=== PATIENT | male | born 1950 | race Caucasian/White ===

== ENCOUNTER 2016-10-05 21:35 | Inpatient (IN) | payer MEDICAID, MEDICARE ==
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
[2016-10-05 22:47] LABS: ACETAMINOPHEN < 10.0 ug/mL (10.0-30.0); ALB/GLOB RATIO 1.3 (1.0-1.8); ALKALINE PHOSPHATASE 106 U/L (34-104); ANION GAP 12.6 (7.0-16.0); BILIRUBIN,TOTAL 0.3 mg/dL (0.3-1.0); BUN - UREA NITROGEN 20 mg/dL (7-25); CALCIUM SERUM 9.9 mg/dL (8.6-10.3); CARBON DIOXIDE 21.6 mEq/L (21.0-31.0); CHLORIDE 103 mEq/L (98-107); CHOLESTEROL 202 mg/dL (<200); CREATININE - SERUM 0.8 mg/dL (0.7-1.3); GLUCOSE 109 mg/dL (70-105); POTASSIUM SERUM 4.2 mEq/L (3.5-5.1); SGOT 15 U/L (13-39); SGPT/ALT 8 U/L (7-52); SODIUM SERUM 133 mEq/L (136-145); TRIGLYCERIDES 80 mg/dL (<150)
[2016-10-05 22:59] LABS: % BASOPHILS 0.9 % (0.0-2.0); % EOSINOPHILS 2.1 % (0.0-5.0); % LYMPHOCYTES 36.6 % (20.0-50.0); % NEUTROPHILS 51.4 % (40.0-80.0); HEMATOCRIT 38.6 % (39.0-49.0); HEMOGLOBIN 13.2 gm/dL (12.6-17.4); MEAN CELL VOLUME 86.6 fl (80-99); MEAN CORPUSCULAR HEMOGLOBIN 29.5 pg (27.0-31.0); MEAN CORPUSCULAR HGB CONC 34.1 pg (28.0-36.0); MEAN PLATELET VOLUME 6.9 fl; NEUTROPHILE ABSOLUTE 2.8 Th/cmm (1.8-8.0); PLATELET COUNT 253 Th/cmm (150-400); RED BLOOD COUNT 4.46 Mil/cmm (3.80-5.80); RED CELL DISTRIBUTION WIDTH 14.5 % (11.5-20.0); WHITE BLOOD COUNT 5.4 Th/cmm (4.8-10.8)
[2016-10-06] MEDS ORDERED: guaiFENesin 200 MG/10 ML UDC PO PRN ×2 (00:27→00:28)
[2016-10-06] MEDS ORDERED: Hydrocodone/APAP 5mg/325mg Tab PO PRN (00:27)
[2016-10-06 00:28] LABS: URINE BILIRUBIN NEGATIVE (NEGATIVE); URINE BLOOD NEGATIVE (NEGATIVE); URINE GLUCOSE (UA) NEGATIVE (NEGATIVE); URINE KETONE NEGATIVE (NEGATIVE); URINE PROTEIN NEGATIVE (NEGATIVE); URINE UROBILINOGEN 0.2 E.U./dL (0.2 - 1.0)
[2016-10-06] MEDS ORDERED: Albuterol Nebulizer 2.5mg/3mL HHN PRN (00:28)
[2016-10-06] MEDS ORDERED: Ipratropium Neb 0.5 mg/2.5 mL UD IH PRN (00:28)
[2016-10-06 00:33] LABS: URINE COLOR YELLOW
[2016-10-06 00:34] LABS: URINE BACTERIA NONE SEEN /hpf (NONE SEEN); URINE EPITHELIAL CELLS NONE SEEN /lpf (FEW); URINE RBC NONE SEEN /hpf (0-5); URINE WBC NONE SEEN /hpf (0-5)
[2016-10-06] MEDS: D5-0.9%NS 1,000 ML IV SCH (00:40)
[2016-10-06 00:52] LABS: AMPHETAMINE URINE NEGATIVE (NEGATIVE); BARBITURATES URINE NEGATIVE (NEGATIVE); METHADONE URINE NEGATIVE (NEGATIVE)
[2016-10-06] MEDS ORDERED: Pneumococcal Vaccine 0.5 mL Vial IM ONE (04:08)
[2016-10-06 05:40] VITALS: BP 169/59
--- NOTE | 2016-10-06 08:05 | Diagnostic Imaging Report ---
CT scan of the brain without intravenous contrast HISTORY: Headache, trauma Total DLP equals 615 CTDI equals 33.3 Axial sections were obtained from the base of the skull to the vertex. There is a prominent ventricular system size along with prominence of cerebral sulci and subarachnoid cisterns reflecting atrophy. Basal ganglia calcification noted. Mild hyperdensity noted in the supratentorial white matter regions without mass effect. The findings may be associated with chronic small vessel ischemic disease. No acute abnormalities. No acute intracerebral hemorrhage. No mass effect or shift of midline structures. No extra-axial masses or abnormal fluid collections. Mucosal thickening noted within the maxillary and ethmoid sinuses. IMPRESSION: 1. No acute abnormalities 2. Cerebral atrophy 3. Supratentorial white matter changes. The findings may be seen with chronic small vessel ischemic disease 4. Mucosal thickening within the maxillary and ethmoid sinuses.
[2016-10-06] MEDS: VERAPAMIL HCL 180 MG PO SCH (09:02)
--- NOTE | 2016-10-06 15:25 | Internal Medicine Prog Note ---
Internal Medicine Subjective - Subjective Service Date: 10/06/16 ([id number]) Internal Medicine Objective - Results Result Diagrams: 10/05/16 22:12 10/05/16 22:12 Recent Labs: Laboratory Last Values WBC 5.4 Th/cmm (4.8-10.8) 10/05/16 22:12 RBC 4.46 Mil/cmm (3.80-5.80) 10/05/16 22:12 Hgb 13.2 gm/dL (12.6-17.4) 10/05/16 22:12 Hct 38.6 % (39.0-49.0) L 10/05/16 22:12 MCV 86.6 fl (80-99) 10/05/16 22:12 MCH 29.5 pg (27.0-31.0) 10/05/16 22:12 MCHC Differential 34.1 pg (28.0-36.0) 10/05/16 22:12 RDW 14.5 % (11.5-20.0) 10/05/16 22:12 Plt Count 253 Th/cmm (150-400) 10/05/16 22:12 MPV 6.9 fl 10/05/16 22:12 Neutrophils % 51.4 % (40.0-80.0) 10/05/16 22:12 Lymphocytes % 36.6 % (20.0-50.0) 10/05/16 22:12 Monocytes % 9.0 % (2.0-10.0) 10/05/16 22:12 Eosinophils % 2.1 % (0.0-5.0) 10/05/16 22:12 Basophils % 0.9 % (0.0-2.0) 10/05/16 22:12 Sodium 133 mEq/L (136-145) L 10/05/16 22:12 Potassium 4.2 mEq/L (3.5-5.1) 10/05/16 22:12 Chloride 103 mEq/L (98-107) 10/05/16 22:12 Carbon Dioxide 21.6 mEq/L (21.0-31.0) 10/05/16 22:12 Anion Gap 12.6 (7.0-16.0) 10/05/16 22:12 BUN 20 mg/dL (7-25) 10/05/16 22:12 Creatinine 0.8 mg/dL (0.7-1.3) 10/05/16 22:12 Est GFR ( Amer) > 60.0 ml/min (>90) 10/05/16 22:12 Est GFR (Non-Af Amer) > 60.0 ml/min 10/05/16 22:12 BUN/Creatinine Ratio 25.0 10/05/16 22:12 Glucose 109 mg/dL (70-105) H 10/05/16 22:12 Calcium 9.9 mg/dL (8.6-10.3) 10/05/16 22:12 Total Bilirubin 0.3 mg/dL (0.3-1.0) 10/05/16 22:12 AST 15 U/L (13-39) 10/05/16 22:12 ALT 8 U/L (7-52) 10/05/16 22:12 Alkaline Phosphatase 106 U/L (34-104) H 10/05/16 22:12 Total Protein 7.5 gm/dL (6.0-8.3) 10/05/16 22:12 Albumin 4.3 gm/dL (4.2-5.5) 10/05/16 22:12 Globulin 3.2 gm/dL 10/05/16 22:12 Albumin/Globulin Ratio 1.3 (1.0-1.8) 10/05/16 22:12 Triglycerides 80 mg/dL (<150) 10/05/16 22:12 Cholesterol 202 mg/dL (<200) H 10/05/16 22:12 LDL Cholesterol Direct 167 mg/dL (75-193) 10/05/16 22:12 HDL Cholesterol 38 mg/dL (23-92) 10/05/16 22:12 TSH 0.63 uIU/ml (0.34-5.60) 10/05/16 22:12 Urine Source CLEAN C 10/06/16 00:05 Urine Color YELLOW 10/06/16 00:05 Urine Clarity CLEAR (CLEAR) 10/06/16 00:05 Urine pH 6.0 (4.6 - 8.0) 10/06/16 00:05 Ur Specific [facility] 1.020 (1.005-1.030) 10/06/16 00:05 Urine Protein NEGATIVE mg/dL (NEGATIVE) 10/06/16 00:05 Urine Glucose (UA) NEGATIVE mg/dL (NEGATIVE) 10/06/16 00:05 Urine Ketones NEGATIVE mg/dL (NEGATIVE) 10/06/16 00:05 Urine Blood NEGATIVE (NEGATIVE) 10/06/16 00:05 Urine Nitrate NEGATIVE (NEGATIVE) 10/06/16 00:05 Urine Bilirubin NEGATIVE (NEGATIVE) 10/06/16 00:05 Urine Urobilinogen 0.2 E.U./dL (0.2 - 1.0) 10/06/16 00:05 Ur Leukocyte Esterase NEGATIVE (NEGATIVE) 10/06/16 00:05 Urine RBC NONE SEEN /hpf (0-5) 10/06/16 00:05 Urine WBC NONE SEEN /hpf (0-5) 10/06/16 00:05 Ur Epithelial Cells NONE SEEN /lpf (FEW) 10/06/16 00:05 Urine Bacteria NONE SEEN /hpf (NONE SEEN) 10/06/16 00:05 Salicylates < 25.0 mg/L (30.0-100.0) L 10/05/16 22:12 Urine Opiates Screen NEGATIVE (NEGATIVE) 10/06/16 00:05 Urine Methadone Screen NEGATIVE (NEGATIVE) 10/06/16 00:05 Acetaminophen < 10.0 ug/mL (10.0-30.0) L 10/05/16 22:12 Ur Barbiturates Screen NEGATIVE (NEGATIVE) 10/06/16 00:05 Ur Tricyclics Screen POSITIVE (NEGATIVE) H 10/06/16 00:05 Ur Phencyclidine Scrn NEGATIVE (NEGATIVE) 10/06/16 00:05 Amphetamines Screen NEGATIVE (NEGATIVE) 10/06/16 00:05 U Methamphetamines Scrn NEGATIVE (NEGATIVE) 10/06/16 00:05 U Benzodiazepines Scrn NEGATIVE (NEGATIVE) 10/06/16 00:05 U Cocaine Metab Screen NEGATIVE (NEGATIVE) 10/06/16 00:05 U Cannabinoids Screen NEGATIVE (NEGATIVE) 10/06/16 00:05 Ethyl Alcohol < 10 mg/dL (0-10) 10/05/16 22:12 - Physical Exam Vitals and I&O: Vital Signs Temp 97.4 F 10/06/16 12:21 Pulse 70 10/06/16 12:21 Resp 18 10/06/16 12:21 BP 141/75 10/06/16 12:21 Pulse Ox 97 10/06/16 12:21 Intake & Output 10/05/16 10/06/16 10/06/16 18:59 06:59 18:59 Weight (lbs) 188 lb Other: # Voids 1 # Bowel Movements 0 Stool Characteristics Soft Soft Formed Formed Active Medications: Current Medications Acetaminophen (Tylenol) 650 mg PO Q4H PRN PRN Reason: Pain Or Fever above 101 Stop: 12/05/16 00:27 Acetaminophen/Hydrocodone Bitart ([place] 5mg/325mg) 1 tab PO Q6HR PRN PRN Reason: Pain (Severe) Stop: 12/05/16 00:26 Albuterol Sulfate (Albuterol 2.5mg/3ml Neb Ud) 2.5 mg HHN Q2HRT PRN PRN Reason: Shortness of Breath or Wheeze Stop: 12/05/16 00:27 Aripiprazole (Abilify) 10 mg PO DAILY [facility] PRN Reason: Protocol Stop: 12/05/16 08:59 Last Admin: 10/06/16 09:04 Dose: 10 mg Baclofen (Lioresal) 10 mg PO BID [facility] Stop: 12/05/16 08:59 Last Admin: 10/06/16 09:01 Dose: 10 mg Benazepril HCl (Lotensin) 5 mg PO DAILY [facility] Stop: 12/05/16 08:59 Last Admin: 10/06/16 09:02 Dose: 5 mg Cholecalciferol (Vitamin D3) 5,000 iu PO DAILY [facility] Stop: 12/05/16 08:59 Last Admin: 10/06/16 09:01 Dose: 5,000 iu Divalproex Sodium (Depakote Dr) 500 mg PO BID [facility] PRN Reason: Protocol Stop: 12/05/16 08:59 Last Admin: 10/06/16 09:02 Dose: 500 mg Gabapentin (Neurontin) 200 mg PO Q6HR [facility] Stop: 12/05/16 05:59 Last Admin: 10/06/16 06:00 Dose: 200 mg Gemfibrozil (Lopid) 600 mg PO BID [facility] Stop: 12/05/16 08:59 Last Admin: 10/06/16 09:03 Dose: 600 mg Guaifenesin (Robitussin) 200 mg PO Q4HR PRN PRN Reason: Cough or Congestion Stop: 12/05/16 00:27 Heparin Sodium (Porcine) (Heparin) 5,000 units SUBQ Q12HR [facility] Stop: 12/05/16 08:59 Last Admin: 10/06/16 09:08 Dose: 5,000 units Dextrose/Sodium Chloride (D5-0.9%Ns) 1,000 mls @ 80 mls/hr IV .[id number] [facility] Stop: 12/05/16 00:29 Last Admin: 10/06/16 00:40 Dose: 80 mls/hr Ipratropium [place] (Atrovent Neb 0.5mg/2.5ml) 0.5 mg IH Q2HRT PRN PRN Reason: Shortness of Breath or Wheeze Stop: 12/05/16 00:27 Lorazepam (Ativan) 0.5 mg PO DAILY [facility] PRN Reason: Protocol Stop: 12/05/16 08:59 Last Admin: 10/06/16 09:03 Dose: 0.5 mg Miscellaneous (Melatonin/Pyridoxine [Melatonin 3 Mg Tablet]) 6 mg PO HS [facility] Stop: 12/05/16 20:59 Ondansetron HCl (Zofran) 4 mg IV Q8H PRN PRN Reason: Nausea / Vomiting Stop: 12/05/16 00:27 Risperidone (Risperdal) 0.5 mg PO BID [facility] PRN Reason: Protocol Stop: 12/05/16 08:59 Last Admin: 10/06/16 09:01 Dose: 0.5 mg Verapamil HCl (Isoptin Sr) 180 mg PO DAILY [facility] Stop: 12/05/16 08:59 Last Admin: 10/06/16 09:02 Dose: 180 mg Internal Medicine Assmt/Plan - Assessment Assessment: ALOC INCREASED AGITATION HYPONATREMIA HYPERCHOLESTEREMIA HTN BIPOLAR SCHIZOPHRENIA
--- NOTE | 2016-10-06 16:32 | History & Physical ---
ADMIT DATE: 10/06/2016 CHIEF COMPLAINT: Agitation. HISTORY OF PRESENT ILLNESS: This is a 66-year-old male who is a resident of [facility] who is brought here to [facility] for change in mental status. According to nursing staff at the prison, the patient was agitated with frequent yelling and outburst. For this reason, the patient is now admitted to the med/surg unit. PAST MEDICAL HISTORY: Hyperlipidemia, mononeuropathy, ____ hypercholesterolemia, bipolar disorder, hypertension, insomnia, schizophrenia. SURGICAL HISTORY: Unknown. SOCIAL HISTORY: The patient is a prison resident, requiring 24-hour nursing care. MEDICATIONS: Please see medication reconciliation sheet. FAMILY HISTORY: Noncontributory. REVIEW OF SYSTEMS: Unable to obtain, patient is uncooperative. PHYSICAL EXAMINATION: GENERAL: The patient is well developed, well nourished, no acute distress. VITAL SIGNS: Temperature 97.4, heart rate 70, blood pressure 141/75, respiration 18, O2 97%. HEENT: Head; normocephalic, atraumatic. NECK: Supple. No mass. LUNGS: Clear bilaterally. HEART: Regular rate and rhythm. ABDOMEN: Soft, nontender. LABORATORY DATA: WBC 5.4, H and H 13.2 and 38.6, platelet of 253. Sodium 133, potassium 4.2, chloride 103, BUN 20, creatinine 0.8. The patient had a urinalysis negative for any UTI. DIAGNOSTICS: The patient had a CT of the head done and the impression is no acute abnormalities. ASSESSMENT: Altered level of consciousness, increased agitation, hypercholesterolemia, hypertension, schizophrenia, hyperlipidemia and bipolar disorder. PLAN: The patient will be admitted to the med/surg unit. The patient will have a Psych consult. The patient will be kept on IV fluids for hydration. We will continue to monitor the patient. JOB# [id number]
[2016-10-06] MEDS ORDERED: VTE Chemical Prophylaxis Screen/Admission MC PRN (17:46)
[2016-10-06] MEDS ORDERED: MELATONIN PO SCH (21:00)
[2016-10-06] MEDS ORDERED: PYRIDOXINE PO SCH (21:00)
--- NOTE | 2016-10-06 21:13 | Admit Criteria Form ---
Admit Criteria Forms - Admit Criteria Diagnosis: PSYCHIATRIC DISORDERS (Place 'X' for any and all applicable criteria): Ongoing inpatient care may be needed for 1 or more of the following(1)(2)(3)(4)( 6)(7)(8): [ ]I. Danger to self or others not manageable at lower level of care. [ ]II. Grave disability (eg, inability to perform self care necessary at lower level of care) [X ]III. Agitation or inappropriate behavior interfering with care for primary condition (eg, attempting to discontinue lines or drains prematurely, unable to cooperate with respiratory care) [ ]IV. Severe disability or disorder indicated by ALL of the following: [ ]a) Severe behavioral health disorder-related symptoms or condition indicated by 1 or more of the following: [ ]i) Severe problem with cognition, memory, judgment, or impulse control [ ]ii) Severe clinical manifestations (eg, hallucinations, delusions, other acute psychotic symptoms, laury, extreme agitation or anxiety) [ ]b) Patient management at lower level of care is not feasible until acute intervention or modification is initiated. Extended stay beyond goal length of stay for the primary condition may be needed until ALLof the following are present(1)(2)(3)(4)(722)(23): [ ]a) Danger to self or others is absent or manageable at lower level of care [ ]b) Behavior crisis management, including physical or chemical restraints, is required and is not available at a lower level of care. [ ]c) Behavioral symptoms (e.g., agitation, somnolence, inappropriate behavior) are present, and are not manageable at a lower level of care. [ ]d) Patient cannot understand follow-up treatment and crisis plan. [ ]e) Provider and supports are sufficiently available at lower level of care. [ ]f) Patient can participate (e.g., verify absence of plan for harm) and is in needed of monitoring. The original [facility] [employer] content created by [facility] [employer] has been revised. The portions of the content which have been revised are identified through the use of italic text or in bold, and [employer] has neither reviewed nor approved the modified material. All other unmodified content is copyright [facility] [employer]. Please see references footnoted in the original [facility] edition 2017 Admit Criteria Met?: Yes
[2016-10-07] MEDS: D5-0.9%NS 1,000 ML IV SCH (01:09)
[2016-10-07 08:12] LABS: ANION GAP 7.5 (7.0-16.0); BUN - UREA NITROGEN 17 mg/dL (7-25); BUN/CREATININE RATIO 24.3; CALCIUM SERUM 9.4 mg/dL (8.6-10.3); CARBON DIOXIDE 25.6 mEq/L (21.0-31.0); CHLORIDE 107 mEq/L (98-107); CREATININE - SERUM 0.7 mg/dL (0.7-1.3); GLUCOSE 100 mg/dL (70-105); POTASSIUM SERUM 4.1 mEq/L (3.5-5.1); SODIUM SERUM 136 mEq/L (136-145)
[2016-10-07 08:15] LABS: % BASOPHILS 0.1 % (0.0-2.0); % EOSINOPHILS 2.7 % (0.0-5.0); % LYMPHOCYTES 36.2 % (20.0-50.0); % MONOCYTES 7.6 % (2.0-10.0); % NEUTROPHILS 53.4 % (40.0-80.0); HEMATOCRIT 37.4 % (39.0-49.0); HEMOGLOBIN 12.4 gm/dL (12.6-17.4); MEAN CELL VOLUME 88.2 fl (80-99); MEAN CORPUSCULAR HEMOGLOBIN 29.3 pg (27.0-31.0); MEAN CORPUSCULAR HGB CONC 33.2 pg (28.0-36.0); MEAN PLATELET VOLUME 7.6 fl; NEUTROPHILE ABSOLUTE 2.8 Th/cmm (1.8-8.0); PLATELET COUNT 215 Th/cmm (150-400); RED BLOOD COUNT 4.24 Mil/cmm (3.80-5.80); RED CELL DISTRIBUTION WIDTH 14.9 % (11.5-20.0); WHITE BLOOD COUNT 5.1 Th/cmm (4.8-10.8)
[2016-10-07] MEDS: VERAPAMIL HCL 180 MG PO SCH (09:32)
--- NOTE | 2016-10-07 10:43 | Internal Medicine Prog Note ---
Internal Medicine Subjective - Subjective Service Date: 10/07/16 Patient seen and examined:: with staff Patient is:: awake, in bed Patient Complaints of:: cough Per staff patient has:: no adverse event Internal Medicine Objective - Results Result Diagrams: 10/07/16 06:55 10/07/16 06:55 Recent Labs: Laboratory Last Values WBC 5.1 Th/cmm (4.8-10.8) 10/07/16 06:55 RBC 4.24 Mil/cmm (3.80-5.80) 10/07/16 06:55 Hgb 12.4 gm/dL (12.6-17.4) L 10/07/16 06:55 Hct 37.4 % (39.0-49.0) L 10/07/16 06:55 MCV 88.2 fl (80-99) 10/07/16 06:55 MCH 29.3 pg (27.0-31.0) 10/07/16 06:55 MCHC Differential 33.2 pg (28.0-36.0) 10/07/16 06:55 RDW 14.9 % (11.5-20.0) 10/07/16 06:55 Plt Count 215 Th/cmm (150-400) 10/07/16 06:55 MPV 7.6 fl 10/07/16 06:55 Neutrophils % 53.4 % (40.0-80.0) 10/07/16 06:55 Lymphocytes % 36.2 % (20.0-50.0) 10/07/16 06:55 Monocytes % 7.6 % (2.0-10.0) 10/07/16 06:55 Eosinophils % 2.7 % (0.0-5.0) 10/07/16 06:55 Basophils % 0.1 % (0.0-2.0) 10/07/16 06:55 Sodium 136 mEq/L (136-145) 10/07/16 06:55 Potassium 4.1 mEq/L (3.5-5.1) 10/07/16 06:55 Chloride 107 mEq/L (98-107) 10/07/16 06:55 Carbon Dioxide 25.6 mEq/L (21.0-31.0) 10/07/16 06:55 Anion Gap 7.5 (7.0-16.0) 10/07/16 06:55 BUN 17 mg/dL (7-25) 10/07/16 06:55 Creatinine 0.7 mg/dL (0.7-1.3) 10/07/16 06:55 Est GFR ( Amer) > 60.0 ml/min (>90) 10/07/16 06:55 Est GFR (Non-Af Amer) > 60.0 ml/min 10/07/16 06:55 BUN/Creatinine Ratio 24.3 10/07/16 06:55 Glucose 100 mg/dL (70-105) 10/07/16 06:55 Calcium 9.4 mg/dL (8.6-10.3) 10/07/16 06:55 Total Bilirubin 0.3 mg/dL (0.3-1.0) 10/05/16 22:12 AST 15 U/L (13-39) 10/05/16 22:12 ALT 8 U/L (7-52) 10/05/16 22:12 Alkaline Phosphatase 106 U/L (34-104) H 10/05/16 22:12 Total Protein 7.5 gm/dL (6.0-8.3) 10/05/16 22:12 Albumin 4.3 gm/dL (4.2-5.5) 10/05/16 22:12 Globulin 3.2 gm/dL 10/05/16 22:12 Albumin/Globulin Ratio 1.3 (1.0-1.8) 10/05/16 22:12 Triglycerides 80 mg/dL (<150) 10/05/16 22:12 Cholesterol 202 mg/dL (<200) H 10/05/16 22:12 LDL Cholesterol Direct 167 mg/dL (75-193) 10/05/16 22:12 HDL Cholesterol 38 mg/dL (23-92) 10/05/16 22:12 TSH 0.63 uIU/ml (0.34-5.60) 10/05/16 22:12 Urine Source CLEAN C 10/06/16 00:05 Urine Color YELLOW 10/06/16 00:05 Urine Clarity CLEAR (CLEAR) 10/06/16 00:05 Urine pH 6.0 (4.6 - 8.0) 10/06/16 00:05 Ur Specific [place] 1.020 (1.005-1.030) 10/06/16 00:05 Urine Protein NEGATIVE mg/dL (NEGATIVE) 10/06/16 00:05 Urine Glucose (UA) NEGATIVE mg/dL (NEGATIVE) 10/06/16 00:05 Urine Ketones NEGATIVE mg/dL (NEGATIVE) 10/06/16 00:05 Urine Blood NEGATIVE (NEGATIVE) 10/06/16 00:05 Urine Nitrate NEGATIVE (NEGATIVE) 10/06/16 00:05 Urine Bilirubin NEGATIVE (NEGATIVE) 10/06/16 00:05 Urine Urobilinogen 0.2 E.U./dL (0.2 - 1.0) 10/06/16 00:05 Ur Leukocyte Esterase NEGATIVE (NEGATIVE) 10/06/16 00:05 Urine RBC NONE SEEN /hpf (0-5) 10/06/16 00:05 Urine WBC NONE SEEN /hpf (0-5) 10/06/16 00:05 Ur Epithelial Cells NONE SEEN /lpf (FEW) 10/06/16 00:05 Urine Bacteria NONE SEEN /hpf (NONE SEEN) 10/06/16 00:05 Salicylates < 25.0 mg/L (30.0-100.0) L 10/05/16 22:12 Urine Opiates Screen NEGATIVE (NEGATIVE) 10/06/16 00:05 Urine Methadone Screen NEGATIVE (NEGATIVE) 10/06/16 00:05 Acetaminophen < 10.0 ug/mL (10.0-30.0) L 10/05/16 22:12 Ur Barbiturates Screen NEGATIVE (NEGATIVE) 10/06/16 00:05 Ur Tricyclics Screen POSITIVE (NEGATIVE) H 10/06/16 00:05 Ur Phencyclidine Scrn NEGATIVE (NEGATIVE) 10/06/16 00:05 Amphetamines Screen NEGATIVE (NEGATIVE) 10/06/16 00:05 U Methamphetamines Scrn NEGATIVE (NEGATIVE) 10/06/16 00:05 U Benzodiazepines Scrn NEGATIVE (NEGATIVE) 10/06/16 00:05 U Cocaine Metab Screen NEGATIVE (NEGATIVE) 10/06/16 00:05 U Cannabinoids Screen NEGATIVE (NEGATIVE) 10/06/16 00:05 Ethyl Alcohol < 10 mg/dL (0-10) 10/05/16 22:12 RPR NONREACTIVE (NONREACTIVE) 10/05/16 22:12 - Physical Exam Vitals and I&O: Vital Signs Temp 98.2 F 10/07/16 09:05 Pulse 68 10/07/16 09:32 Resp 18 10/07/16 09:05 BP 156/64 10/07/16 09:32 Pulse Ox 95 10/07/16 07:20 Intake & Output 10/06/16 10/07/16 10/07/16 18:59 06:59 18:59 Intake Total 1000 1500 Balance 1000 1500 Weight (lbs) 188 lb Intake: Intake, IV Amount 1000 D5-0.9%Ns 1,000 ml @ 80 1000 mls/hr IV .[id number] [facility] Rx #:[id number] Oral 1500 Other: # Voids 3 # Bowel Movements 1 Stool Characteristics Soft Soft Formed Formed Active Medications: Current Medications Acetaminophen (Tylenol) 650 mg PO Q4H PRN PRN Reason: Pain Or Fever above 101 Stop: 12/05/16 00:27 Acetaminophen/Hydrocodone Bitart ([place] 5mg/325mg) 1 tab PO Q6HR PRN PRN Reason: Pain (Severe) Stop: 12/05/16 00:26 Albuterol Sulfate (Albuterol 2.5mg/3ml Neb Ud) 2.5 mg HHN Q2HRT PRN PRN Reason: Shortness of Breath or Wheeze Stop: 12/05/16 00:27 Aripiprazole (Abilify) 10 mg PO DAILY [facility] PRN Reason: Protocol Stop: 12/05/16 08:59 Last Admin: 10/06/16 09:04 Dose: 10 mg Baclofen (Lioresal) 10 mg PO BID [facility] Stop: 12/05/16 08:59 Last Admin: 10/07/16 09:32 Dose: 10 mg Benazepril HCl (Lotensin) 5 mg PO DAILY [facility] Stop: 12/05/16 08:59 Last Admin: 10/07/16 09:32 Dose: 5 mg Cholecalciferol (Vitamin D3) 5,000 iu PO DAILY [facility] Stop: 12/05/16 08:59 Last Admin: 10/07/16 09:33 Dose: 5,000 iu Divalproex Sodium (Depakote Dr) 500 mg PO BID [facility] PRN Reason: Protocol Stop: 12/05/16 08:59 Last Admin: 10/07/16 09:32 Dose: 500 mg Gabapentin (Neurontin) 200 mg PO Q6HR [facility] Stop: 12/05/16 05:59 Last Admin: 10/07/16 05:40 Dose: 200 mg Gemfibrozil (Lopid) 600 mg PO BID [facility] Stop: 12/05/16 08:59 Last Admin: 10/07/16 09:31 Dose: 600 mg Guaifenesin (Robitussin) 200 mg PO Q4HR PRN PRN Reason: Cough or Congestion Stop: 12/05/16 00:27 Heparin Sodium (Porcine) (Heparin) 5,000 units SUBQ Q12HR [facility] Stop: 12/05/16 08:59 Last Admin: 10/07/16 09:31 Dose: 5,000 units Dextrose/Sodium Chloride (D5-0.9%Ns) 1,000 mls @ 80 mls/hr IV .[id number] [facility] Stop: 12/05/16 00:29 Last Admin: 10/07/16 01:09 Dose: 80 mls/hr Ipratropium [place] (Atrovent Neb 0.5mg/2.5ml) 0.5 mg IH Q2HRT PRN PRN Reason: Shortness of Breath or Wheeze Stop: 12/05/16 00:27 Lorazepam (Ativan) 0.5 mg PO DAILY [facility] PRN Reason: Protocol Stop: 12/05/16 08:59 Last Admin: 10/07/16 09:33 Dose: 0.5 mg Miscellaneous ([employer] Prophylaxis Screen/ Admission) 1 ea [facility] PRN PRN PRN Reason: PROTOCOL Stop: 12/05/16 17:45 Ondansetron HCl (Zofran) 4 mg IV Q8H PRN PRN Reason: Nausea / Vomiting Stop: 12/05/16 00:27 Risperidone (Risperdal) 0.5 mg PO BID [facility] PRN Reason: Protocol Stop: 12/05/16 08:59 Last Admin: 10/07/16 09:32 Dose: 0.5 mg Verapamil HCl (Isoptin Sr) 180 mg PO DAILY [facility] Stop: 12/05/16 08:59 Last Admin: 10/07/16 09:32 Dose: 180 mg General: alert HEENT: NC/AT, PERRLA Neck: Supple Cardiovascular: RRR, Normal S1, Normal S2 Abdomen: soft, non-tender, non-distended, positive bowel sound Extremities: clear, excoriation Neurological: alert Internal Medicine Assmt/Plan - Assessment Assessment: ALOC INCREASED AGITATION HYPONATREMIA HYPERCHOLESTEREMIA HTN BIPOLAR SCHIZOPHRENIA - Plan Plan: MONITOR ELECTROLYTES PSYCH FOLLOW UP AM LABS
--- NOTE | 2016-11-03 14:12 | Discharge Summary ---
DATE OF DISCHARGE: 10/07/2016 DISCHARGE DIAGNOSES: Altered level of consciousness, increased agitation, hypercholesterolemia, hypertension, schizophrenia, hyperlipidemia and bipolar disorder. HISTORY OF PRESENT ILLNESS: A 66-year-old male, who is a resident of [facility], who was brought to [facility] for change in mental status. According to nursing staff at the alf, the patient was agitated with frequent yelling and outburst. For this reason, the patient was admitted. PHYSICAL EXAMINATION: GENERAL: The patient is well developed, well nourished, in no acute distress. VITAL SIGNS: Stable. HEENT: Head: Normocephalic, atraumatic. NECK: Supple. No mass. LUNGS: Clear bilaterally. HEART: Regular rate and rhythm. ABDOMEN: Soft, nontender. During the hospital stay, the patient was admitted to the med/surg unit. The patient had a consultation with Psychiatry. The patient was given IV fluids for hydration as well. The patient had a CT of the head done due to ALOC and the impression is no acute abnormalities, cerebral atrophy, supratentorial white matter changes, mucosal thickening within the maxillary and ethmoid sinuses. The patient regained consciousness and became agitated. For this reason, the patient had a consultation with Psychiatry. The patient is medically stable. For this reason, the patient was stable for discharge. CONDITION UPON DISCHARGE: Fair. DISPOSITION: [facility]. JOB# [id number]
== END 2016-10-07 19:55 | disposition home or self-care (01) | DRG 425 ==
LOC: ER 21:35 → MSI 10-06 00:30
PROVIDERS: ADMIT Internal Medicine; ATTEND Internal Medicine
DX: E87.1 Hypo-osmolality and hyponatremia (principal); F20.9 Schizophrenia, unspecified; I10 Essential (primary) hypertension; R41.82 Altered mental status, unspecified; E78.5 Hyperlipidemia, unspecified; F31.9 Bipolar disorder, unspecified; G58.9 Mononeuropathy, unspecified; E78.00 Pure hypercholesterolemia, unspecified; Z88.0 Allergy status to penicillin
CPT/HCPCS: 36415-UA; 70450-TC; 80048-TC; 80053-TC; 80061-TC; 80307; 80320-TC; 80329-TC; 81001-TC; 84443-TC; 85025-TC; 86592-TC; 93005; 94760; J1644; J7042; Z7610